=== PATIENT | male | born 1955 | race Caucasian/White ===

== ENCOUNTER 2025-05-29 05:54 | Day surgery (SDC) | payer OTHER, SELFPAY ==
[2025-05-08 09:48] VITALS: BMI 31.7
[2025-05-08 10:04] LABS: Hematocrit 39.2 % (39.0-52.0); Hemoglobin 13.4 g/dL (13.0-18.0); Mean Corp Hgb Conc. 34.2 g/dL (33.0-37.0); Mean Corpuscular Volume 95.8 fL (80.0-94.0); Nucleated Red Blood Cells % 0 % (-); Platelet Count 176 10^3/uL (130-400); Red Cell Dist. Width 12.1 % (11.5-14.5)
[2025-05-08 10:07] LABS: INR 1.13; PT 15.0 Sec (11.4-14.6)
[2025-05-08 10:12] LABS: ALT (SGPT) 19 U/L (0-50); AST (SGOT) 20 U/L (17-59); Albumin 4.3 g/dl (3.5-5.0); Alkaline Phosphatase 50 U/L (38-126); Blood Urea Nitrogen 31 mg/dl (9-20); Calcium 9.4 mg/dl (8.4-10.2); Carbon Dioxide 29 mmol/L (22-30); Chloride 100 mmol/L (98-107); Estimated Creatinine Clearance 67 ml/min; Glucose 180 mg/dl (70-99); Magnesium 2.1 mg/dl (1.6-2.3); Potassium 4.5 mmol/L (3.5-5.1); Sodium 135 mmol/L (135-145); Total Protein 7.7 g/dl (6.3-8.2); eGFR 54.41
[2025-05-29] VITALS (21 sets, daily range): BP systolic 102–139; BP diastolic 62–82; BMI 31.4
[2025-05-29 07:10] LABS: Glucose - Point of Care 171 mg/dl (70-99)
--- NOTE | 2025-05-29 09:00 | ITS.CL.ABL ---
[facility] - Ablation
Ablation
Procedure Report:
ELECTROPHYSIOLOGY ABLATION STUDY
DATE:: May 29, 2025�����������������������������REFERRING: Dr. Johnnie Garcia
INDICATION: Persistent supraventricular tachycardia in the form of atrial fibrillation.��Prior 2019 PVI with 20 mm cryoballoon
HISTORY: See H and P.��As above
ANTIARRHYTHMIC DRUG: Diltiazem
PRE-PROCEDURE SURAJ: No intracardiac thrombus on intracardiac ultrasound
PRESENTING RHYTHM: Atrial fibrillation
'TIME-OUT':��called and confirmed.
SEDATION/ANESTHESIA:��provided via the anesthesia department using general anesthesia (LMA).
INTRAVENOUS/ARTERIAL ACCESS:
Right femoral venous - 10 Fr,
Left femoral venous - 8 Fr, 6 Fr
Vrtaco-bt-qdiwi suture bilaterally
Ultrasound guidance for bilateral femoral vein access was utilized by me to obtain access with demonstration of normal anatomy
CHADS-VASC Score:
HAS-Bled Score
PROCEDURE:
1.��A decapolar CS catheter was placed within the CS for mapping and pacing.��This was also used as the reference catheter for the 3-D map.
2. The intracardiac ultrasound catheter was positioned in the RA to identify the FO for targeting of transseptal puncture, assist��in identification of the pulmonary vein ostia, monitoring pre and post ablation pulmonary vein flow velocities,
monitoring for 'bubble' formation during RF application as a sign of thermal injury,��and to monitor for pericardial effusion during mapping and ablation procedure.���Left atrial size, LV ejection fraction, and pulmonary vein flows were monitored
pre and post ablation procedure. The other valves were inspected and found to be free of significant regurgitation or stenosis.
3.��Half of the calculated heparin bolus was administered prior to the first transeptal puncture.��Transseptal puncture was performed to diagnose RA and LA pressure so that safety of LA mapping and ablation could be further assessed, and to access
the left atrium and pulmonary veins for mapping and ablation.��This entailed advancing an 16.8 Greek sheath, RF wire with dilator into the superior vena cava and withdrawing both (monitoring intracardiac ultrasound, fluoroscopy and tip pressure)
with the tip oriented toward the atrial septum.��The fossa ovalis was engaged (indicated by sudden displacement of the sheath tip as well as tenting of the fossa seen on intracardiac ultrasound).��Left atrial access required a pass with the
Brockenbrough needle extended.��Left atrial catheter position was confirmed by pressure monitoring (RA mean pressure 2 mm Hg and LA mean presure 8 mm Hg finished at 14 mmHg after 750 cc of hydration), LA saturation (99%),��as well as
fluoroscopy.��The sheath was advanced over the dilator and positioned in the left atrium.��The remainder of the calculated heparin bolus was administered and heparin was
infused to maintain ACT at 300 -350 seconds throughout the case.
4.��RA pacing was performed via the proximal decapolar poles and LA pacing was performed via the distal decapolr poles.
5. A quadrapolar catheter was first positioned at the His position for His Bundle recording which was tagged via the 3-D Navex sytem, and then passed to the RVA for RV pacing and recording.
6. The Penta spline and grid were placed in each of the LIPV, LSPV, RSPV and the RIPV.��
7.��Next, a 3-D map was created using Navex.���A 3-D reconstructed CT image was compared to the 3-D Navex map to assist in anatomic interpretation, mapping and ablation.��The CT image and the NavX image were fused.
8. The left veins were isolated ostially and the right veins were isolated anteriorly. Basket lesions were given at the ostium and antrum of the left superior pulmonary vein and left inferior pulmonary vein particular attention to the roof outside
the left superior pulmonary vein, the posterior ibis, and the inferior posterior region and just outside the left inferior pulmonary vein. We then performed flower pose lesions to the roof posterior wall and floor of the left atrium. Entrance
block was achieved in all 4 pulmonary veins and wide [place] fashion yet atrial fibrillation persisted then we proceeded to perform roof posterior wall and floor lines in the left atrium. Atrial fibrillation continued to persist and the patient was
cardioverted to sinus rhythm. Entrance and exit block was confirmed in all 4 pulmonary veins roof posterior wall and floor the left atrium. EP study post cardioversion did not demonstrate any other nonpulmonary vein triggers for atrial
fibrillation or supraventricular mechanism or arrhythmia. A total of 32 lesions were given.
9. Normal sinus node and AV node function noted.
TOTAL FLOURO TIME: 10.3 minutes 103 mGy
TOTAL RF DURATION: 0 minutes
REVERSAL OF HEPARIN: 35 mg of protamine, slow IV administration
COMPLICATIONS:
None
Intracardiac US shows no pericardial effusion post ablation.
SUMMARY:��
Complex left atrial mapping and ablation.
Antral reisolation of the left pulmonary veins and the roof posterior wall floor of the left atrium with flower poses. Entrance
And exit block was confirmed in all 4 pulmonary veins roof posterior wall for the left atrium.
RECOMMENDATIONS:
1. Ambulate in 4 hours
2. Resume anticoagulation
3.� Consider same-day discharge
4.��Continue current medications although could consider stopping diltiazem as an outpatient in 1 to 2 months
Copy to: Dr. Johnnie Garcia
[2025-05-29 10:18] LABS: Glucose - Point of Care 184 mg/dl (70-99)
--- NOTE | 2025-05-29 14:09 | W.PN.UPDATE ---
Update Note
Progress Note Update
69yo WM s/p PVI (same day). He denies cp, sob, lashawn diet, voiding, amb w/o dizziness, EKG SR with frequent PAC's, b/l groins c/d/i no HT, soft. He will resume Eliquis tonight. He will continue diltiazem and carvedilol. Activity restrictions reviewed.
He will f/u Dr. Garcia in 1 mo. He is for d/c home after 2p.
[2025-05-30 11:34] LABS: ACT-LR - POC 308 Seconds (116-155)
== END 2025-05-29 14:00 | disposition home or self-care (01) ==
LOC: CATH 05:54
PROVIDERS: ATTENDING PHYSICIAN Internal Medicine Cardiovascular Disease; FAMILY PHYSICIAN Family Medicine; OTHER PHYSICIAN Internal Medicine Cardiovascular Disease; OTHER PHYSICIAN Physician Assistant Medical
DX: I48.19 Other persistent atrial fibrillation (principal); I10 Essential (primary) hypertension; E11.9 Type 2 diabetes mellitus without complications; E04.1 Nontoxic single thyroid nodule; Z79.01 Long term (current) use of anticoagulants; Z79.899 Other long term (current) drug therapy; E66.9 Obesity, unspecified; Z68.31 Body mass index [BMI] 31.0-31.9, adult; I47.10 Supraventricular tachycardia, unspecified; I48.92 Unspecified atrial flutter; I47.20 Ventricular tachycardia, unspecified
CPT/HCPCS: C1732; C1894; C1730; C1769; C1892; C1759; 36415; 75572; 80053; 82962; 83735; 85025; 85347; 85610; 86850; 86900; 86901; 93005; 93656; 93657; C1733; C1766; Q9967